=== PATIENT | female | born 1955 | race Caucasian/White ===

== ENCOUNTER → 2020-01-04 14:48 | Outpatient (CLI) | payer OTHER, SELFPAY ==
--- NOTE | ~2020-01-04 | CT_ITS ---
EXAMINATION: CTA neck DATE: 01/04/2020 15:51 INDICATION: Stricture of artery. Carotid artery stenosis. TECHNIQUE: Computed tomographic angiography (CTA) of the neck was performed with 100 mL Omnipaque-350 intravenous contrast. Multiplanar reconstructions and maximum intensity projection 3D-reconstruction s were created by the technologist on a separate workstation. The dose-length product was 539 mGy-cm. COMPARISON: None. FINDINGS: There is 40% stenosis of the right carotid bulb relative to normal distal artery lumen diameter (NASC ET criteria). There is 0% stenosis of the left carotid bulb relative to normal distal artery lumen di ameter. 70-80% stenosis in the right subclavian artery which occurs proximal to the takeoff of the ri ght vertebral artery which could potentially result in subclavian steal phenomena. There is a diminut zac left vertebral artery which arises directly from the aortic arch and which supplies the left post erior inferior cerebellar artery but does not appear to continue to supply the basilar artery which a ppears exclusively supplied by the larger right vertebral artery. Bilateral A1 and P1 segments are pa tent. There are also patent bilateral posterior communicating arteries. Cervical soft tissues are unr emarkable. Cervical spondylosis with mild to moderate multilevel degenerative disc disease and multil evel cervical facet osteoarthritis, mild to moderate on the right and severe on the left. Changes of right intraocular lens replacement. Region of encephalomalacia in the right frontal lobe consistent w ith chronic infarct.. IMPRESSION: 1. 40% stenosis of the right carotid bulb relative to normal distal artery lumen diameter (NASCET cri teria). 2. 0% stenosis of the left carotid bulb relative to normal distal artery lumen diameter. 3. 70-80% stenosis in the right subclavian artery proximal to the takeoff of the right vertebral catrachita ry which could predispose towards subclavian steal phenomena. 4. Chronic infarct in the right frontal lobe. Reviewed, dictated and finalized at location A. IMPRESSION: 1. 40% stenosis of the right carotid bulb relative to normal distal artery lume n diameter (NASCET criteria). 2. 0% stenosis of the left carotid bulb relative to normal distal artery lumen diameter. 3. 70-80% stenosis in the right subclavian artery proximal to the takeoff of th e right vertebral artery which could predispose towards subclavian steal phenom consuelo. 4. Chronic infarct in the right frontal lobe.
[2020-01-04 15:22] LABS: Estimated Glomerular Filt Rate 35
== END ==
PROVIDERS: Visit Provider Internal Medicine Cardiovascular Disease
DX: R42 Dizziness and giddiness (principal); I63.9 Cerebral infarction, unspecified; I65.23 Occlusion and stenosis of bilateral carotid arteries
CPT/HCPCS: 36415; 70498; Q9967

== ENCOUNTER 2020-03-07 17:04 | Emergency (ER) | payer OTHER, SELFPAY ==
[2020-03-07 17:13] VITALS: BP 127/54; PULSE 62; RESP 18; TEMP 36.1; O2SAT 98
--- NOTE | 2020-03-07 17:18 | ED.EYEPROB ---
HPI - Eye Problem General Chief complaint: Eye Problems Stated complaint: L EYE BLEEDING Time Seen by Provider: 03/07/20 17:07 History of Present Illness HPI Narrative: Patient is a 64-year-old female who presents ER with bleeding to her left eye. Patient woke up this morning and had redness over the left aspect of her sclera and inferiorly. Has a scratchy sensation over. Mild discomfort when she looks to the right side. No pain of the eyeball itself. Visual acuity 20/40 on the right and 20/50 on the left. No double vision/flashers/floaters. No known trauma to the eye. No coughing or sneezing. Patient takes Eliquis. Related Data Home Medications Medication Instructions Recorded Confirmed apixaban [Eliquis] mg 03/07/20 03/07/20 aspirin 03/07/20 aspirin-dipyridamole cap PO 03/07/20 cefuroxime axetil 03/07/20 diltiazem HCl PO 03/07/20 folic acid 03/07/20 furosemide 03/07/20 hydrocodone-acetaminophen tablet 03/07/20 isosorbide mononitrate mg PO 03/07/20 levothyroxine 03/07/20 meclizine mg 03/07/20 methotrexate sodium 03/07/20 montelukast mg 03/07/20 pantoprazole PO 03/07/20 potassium chloride meq PO 03/07/20 ropinirole mg 03/07/20 sertraline mg 03/07/20 sotalol 03/07/20 trazodone 03/07/20 Allergies Allergy/AdvReac Type Severity Reaction Status Date / Time codeine Allergy Severe TACHYCARDIA Unverified 08/27/10 12:55 hydromorphone [From Dilaudid] Allergy Severe Unknown Verified 03/07/20 17:40 Review of Systems Eyes: Eyes: Denies change in vision and Denies photophobia Comments: Subconjunctival hemorrhage left eye Respiratory: Respiratory: Denies cough Comments: No sneezing PMFSH Past Medical History Medical History (Updated 03/07/20 @ 17:24 by Drake Santana MD) Anxiety Depression Diverticulosis Hypercholesterolemia Hypothyroidism TIA (transient ischemic attack) Surgical History Surgical History (Updated 03/07/20 @ 17:22 by Drake Santana MD) H/O: hysterectomy History of cholecystectomy History of tonsillectomy Total knee replacement status Bilateral knees Social History Social History Gender identity (if verbalized by the patient): Female Exam Narrative: Exam Narrative: GENERAL: Well-appearing, well-nourished, and in no acute distress. HEAD: Normocephalic, atraumatic. EYES: PERRL and EOMI. subconjunctival hemorrhage left eye lateral aspect and inferior aspect. No corneal abrasion when viewed with magnification fluorescein staining. No FB. ENT: Mucous membranes moist. NEURO: Alert and oriented x3. PSYCH: Normal mood and affect. Course Vital Signs Vital signs: Vital Signs Temperature 96.9 F L 03/07/20 17:13 Pulse Rate 62 03/07/20 17:13 Respiratory Rate 18 03/07/20 17:13 Blood Pressure 127/54 L 03/07/20 17:13 Pulse Oximetry 98 03/07/20 17:13 Temperature 96.9 F L 03/07/20 17:13 Pulse Rate 62 03/07/20 17:13 Respiratory Rate 18 03/07/20 17:13 Blood Pressure 127/54 L 03/07/20 17:13 Pulse Oximetry 98 03/07/20 17:13 Discharge Plan Discharge Clinical Impression: Subconjunctival hemorrhage Patient Disposition: Home, Self-Care Condition: Stable Instructions: Subconjunctival Hemorrhage (ED) Additional Instructions: Return the ER if you have loss of vision, you have severe pain in your eye, you have chest pain or shortness of breath, you have additional concerns. Prescriptions: No Action aspirin-dipyridamole 25-200 mg capsule, ER multiphase 12 hr PO RF: 0 cefuroxime axetil 250 mg tablet RF: 0 trazodone 50 mg tablet RF: 0 sotalol 80 mg tablet RF: 0 isosorbide mononitrate 30 mg tablet extended release 24 hr PO RF: 0 sertraline 100 mg tablet RF: 0 meclizine 12.5 mg tablet RF: 0 potassium chloride 10 mEq tablet extended release PO RF: 0 hydrocodone-acetaminophen 10-325 mg tablet RF: 0 methotrexate sodium 2.5
--- NOTE | 2020-03-07 17:43 | PC.NURSE ---
Dr. Santana at bedside for visual exam.
== END 2020-03-07 18:04 | disposition home or self-care (01) ==
LOC: ANHED 17:50
PROVIDERS: Emergency Provider Emergency Medicine; PCP Internal Medicine
DX: H11.32 Conjunctival hemorrhage, left eye (principal); F41.9 Anxiety disorder, unspecified; F32.9 Major depressive disorder, single episode, unspecified; E78.00 Pure hypercholesterolemia, unspecified; E03.9 Hypothyroidism, unspecified; Z86.73 Personal history of transient ischemic attack (TIA), and cerebral infarction without residual deficits; Z79.01 Long term (current) use of anticoagulants; Z79.82 Long term (current) use of aspirin; Z96.653 Presence of artificial knee joint, bilateral
CPT/HCPCS: 99282; A9270

== ENCOUNTER → 2020-12-02 09:05 | Outpatient (CLI) | payer OTHER, SELFPAY ==
--- NOTE | ~2020-12-02 | MR_ITS ---
EXAMINATION: MR hip LT wo con DATE: 12/02/2020 10:34 INDICATION: Primary osteoarthritis of the left hip with severe left hip pain TECHNIQUE: Magnetic resonance imaging (MRI) of the left hip was performed without intravenous contra st. Sequences included full-field axial PD-weighted FS FSE and T1-weighted FSE, coronal of the pelvis with PD-weighted FS FSE, small field of view of the left hip with axial PD-weighted FS FSE, sagitta l PD-weighted FS FSE and coronal PD weighted FS FSE. Additional radial T1-weighted FGR oriented ortho gonal to the acetabular rim were obtained for evaluation of the labrum. COMPARISON: None FINDINGS: Bones/labrum/cartilage: Alignment is normal. No fracture, avascular necrosis or pathologic marrow replacing process. Mild os teoarthritis at the left hip with mild nonuniform partial thickness cartilage loss which involves les s than 50% the cartilage thickness and without degenerative subchondral changes. The left acetabular labrum is diminutive consistent with chronic degeneration without a discrete well-defined labral tear . Fluid: Symmetric physiologic amount of fluid within both hip joints. Soft tissues: Normal and symmetric muscle bulk and signal in the pelvis and visualized proximal thighs. Mild tendin opathy without discrete tear at the proximal left hamstring tendons with associated mild left ischial bursitis. The bilateral iliopsoas, gluteal and right proximal hamstring tendons are normal. The uter us is not identified and has likely been surgically resected. There are few diverticula along the sig moid colon without adjacent inflammatory change to suggest diverticulitis. Limited evaluation of visc eral organs of the pelvis is otherwise unremarkable. No pathologically enlarged pelvic/inguinal lymp hadenopathy. IMPRESSION: 1. Mild left hip osteoarthritis with diffuse labral degeneration. 2. Mild left ischial bursitis with mild tendinopathy without discrete tear at the proximal left hamst ring tendons. Reviewed, dictated and finalized at location A. IMPRESSION: 1. Mild left hip osteoarthritis with diffuse labral degeneration. 2. Mild left ischial bursitis with mild tendinopathy without discrete tear at t he proximal left hamstring tendons.
== END ==
PROVIDERS: PCP Internal Medicine; Visit Provider Physical Medicine & Rehabilitation
DX: M16.12 Unilateral primary osteoarthritis, left hip (principal); M71.552 Other bursitis, not elsewhere classified, left hip
CPT/HCPCS: 73721